=== PATIENT | female | born 1995 | race Caucasian/White ===

== ENCOUNTER 2024-07-23 19:59 | Emergency (ER) | payer OTHER, SELFPAY ==
--- NOTE | ~2024-07-23 | CT_ITS ---
CLINICAL HISTORY: RLQ pain tender CT abdomen and pelvis with contrast Comparison: None available Findings: No consolidation imaged lung bases. Mild right-sided hydroureteronephrosis with 5 mm stone in the right ureterovesicular junction. Left-sided contrast could obscure small stone. No left-sided hydronephrosis. Liver, spleen, and adrenal glands are unremarkable. Pancreas unremarkable accounting for mild artifacts. Gallbladder are unremarkable for CT. Nonenlarged lymphadenopathy. No small bowel obstruction. Moderate to severe stool burden present, including in the imaged cecum. The appendix is within normal limits (imaged 429 of series 4). The uterus is anteverted with fluid in the endometrium. No adnexal soft tissue mass by CT. No acute osseous abnormality. IMPRESSION: Mild right-sided hydroureteronephrosis with 5 mm stone in the right ureterovesicular junction. This document has been electronically signed by: Ryan Lopes MD on 07/23/2024 22:17:12
[2024-07-23 20:12] VITALS: BP 123/82; PULSE 82; TEMP 36.5; O2SAT 100
[2024-07-23 20:13] VITALS: BP 122/68; PULSE 72; O2SAT 100
[2024-07-23 20:18] VITALS: BP 123/82; PULSE 82; RESP 20; TEMP 36.5; O2SAT 100; BMI 37.7
[2024-07-23 20:37] LABS: MANUAL DIFF FLAG NO
[2024-07-23 20:38] LABS: Basophils Absolute Auto 0.1 X10*3/uL (0.0-0.2); Basophils Percent Auto 0.5 % (0-2); Eosinophils Absolute Auto 0.4 X10*3/uL (0.0-0.4); Eosinophils Percent Auto 2.4 % (0-4); Hematocrit 35.2 % (37.0-47.0); Imm Gran Abs Auto 0.06 X10*3/uL (0.00-0.03); Imm Gran Pct Auto 0.4 % (0.0-0.4); Lymphocytes Absolute Auto 2.4 X10*3/uL (1.2-4.9); Lymphocytes Percent Auto 14.8 % (20-40); Mean Corpuscular HGB Conc 34.1 g/dl (31.0-35.0); Mean Corpuscular Hemoglobin 29.2 pg (27.0-33.0); Mean Corpuscular Volume 85.6 fL (80.0-98.0); Mean Platelet Volume 9.9 fL (9.4-12.3); Monocytes Absolute Auto 0.7 X10*3/uL (0.1-1.2); Monocytes Percent Auto 4.5 % (2-11); Neutrophils Absolute Auto 12.3 x10*3/uL (2.0-8.3); Neutrophils Percent Auto 77.4 % (45-73); Platelet Count 303 X10*3/uL (160-400); Red Blood Count 4.11 X10*6/uL (4.20-5.50); Red Cell Distribution Width 12.6 % (11.0-16.0); White Blood Count 15.9 X10*3/uL (4.8-10.8)
[2024-07-23 20:40] LABS: Appearance Urine Cloudy; Color Urine Yellow; Glucose Urine UA Negative (Negative); Leukocyte Esterase Urine Moderate (2+) (Negative); Nitrite Urine Negative (Negative); PH 5.5 (5.0-9.0); Specific Gravity - Urine >= 1.030 (1.005-1.025); UMIC TRIGGER UACC YES; Urine Blood Large (3+) (Negative); Urine Ketones 40 mg/dL (Negative); Urine Protein 30 (1+) mg/dL (Neg-Trace)
[2024-07-23 20:44] LABS: UPreg QC Valid YES; Urine Pregnancy NEGATIVE (NEGATIVE)
--- NOTE | 2024-07-23 20:47 | ED.ABDPAIN ---
HPI - Abdominal Pain General Chief Complaint: Abdominal Pain Stated Complaint: R FLANK PAIN [id number] PER EMS Time Seen by Provider: 07/23/24 20:31 History of Present Illness ED Provider: Jhon Enriquez MD HPI narrative: 29-year-old female no surgical history she is an asthmatic only she reports a fluctuating pain over the past 2-3 weeks will see in the right flank but also in the lower abdomen radiating around the right lower quadrant and suprapubic region. No dysuria, pyuria, urinary frequency. She denies fevers today she began with nausea vomited 3 times nonbloody nonbilious. No surgical history no no vaginal bleeding. HCG negative Related Data Previous Rx's ?Medication ?Instructions ?Recorded ondansetron 4 mg disintegrating 4 mg PO Q8H 3 days #9 tabs 07/23/24 tablet sulfamethoxazole 400 1 tab PO BID 10 days #20 tabs 07/23/24 mg-trimethoprim 80 mg tablet (Bactrim) tamsulosin 0.4 mg capsule (Flomax) 0.4 mg PO DAILY #3 caps 07/23/24 Allergies Allergy/AdvReac Type Severity Reaction Status Date / Time No Known Allergies Allergy Verified 07/23/24 20:24 [facility] Social History Social History Unable to assess alcohol history related to: Unknown Physical Exam ED Vital Signs: Vital Signs - 24 hr 07/23/24 20:12 07/23/24 20:18 07/23/24 22:13 Temperature 97.7 F 97.7 F 97.4 F Pulse Rate 82 82 85 Respiratory Rate 20 24 H Blood Pressure 123/82 123/82 120/75 Pulse Oximetry 100 100 96 Oxygen Delivery Method Room Air Room Air Room Air 07/23/24 23:54 Temperature 97.4 F Pulse Rate 85 Respiratory Rate 24 H Blood Pressure 120/75 Pulse Oximetry 96 Oxygen Delivery Method Room Air BMI result Body Mass Index 37.7 Const Other: EXAM: Gen: Alert, awake, well appearing, well hydrated. Head: Atraumatic Eyes: Anicteric, Normal conjunctiva. ENT: Moist mucosa, no pallor. ? Neck: Supple. Respiratory: Breathing comfortably, No distress.Clear to auscultation bilaterally, symmetric chest expansion, No wheeze, rales, ronchi. Cardiovascular: Regular rate and rhythm. No murmurs or rub. Well perfused periphery, warm extremities. No edema. ? Abdominal: Soft, no objective distension. No palpable masses or obvious organomegaly. Mild tenderness in the right lower quadrant and suprapubic region. Soft otherwise., no guarding, no rebound tenderness or other peritoneal findings. : Mild right CVA tenderness no bruising Neuro: Alert. Gross movement of all extremities intact. ? Vital signs: See flowsheet Medical Decision Making Medical Decision Making MDM Narrative: 29-year-old female with right flank and lower abdominal pain. She reports negative ultrasound at [facility] 2-3 weeks ago. She has got a white count of 15.9 but no fever she has been nauseous. Could be adnexal pathology such as ovarian cyst, rupture, she is not so unlikely to be ectopic. Certainly could be torsion but seems less likely given the presentation. Appendicitis is possible, musculoskeletal pain, constipation, enteritis, colitis, diverticulitis plan for CT, nausea and pain control Lab Data 07/23/24 20:32 07/23/24 20:32 Labs: Lab Results 07/23/24 Range/Units 20:32 WBC 15.9 H (4.8-10.8) X10*3/uL RBC 4.11 L (4.20-5.50) X10*6/uL Hgb 12.0 (12.0-16.0) g/dl Hct 35.2 L (37.0-47.0) % MCV 85.6 (80.0-98.0) fL MCH 29.2 (27.0-33.0) pg MCHC 34.1 (31.0-35.0) g/dl RDW 12.6 (11.0-16.0) % Plt Count 303 (160-400) X10*3/uL MPV 9.9 (9.4-12.3) fL Immature Gran % (Auto) 0.4 (0.0-0.4) % Neut % (Auto) 77.4 H (45-73) % Lymph % (Auto) 14.8 L (20-40) % [place] % (Auto) 4.5 (2-11) % Eos % (Auto) 2.4 (0-4) % Baso % (Auto) 0.5 (0-2) % Lymph # (Auto) 2.4 (1.2-4.9) X10*3/uL [place] # (Auto) 0.7 (0.1-1.2) X10*3/uL Eos # (Auto) 0.4 (0.0-0.4) X10*3/uL Baso # (Auto) 0.1 (0.0-0.2) X10*3/uL Abs Immat Gran (auto) 0.06 H (0.00-0.03) X10*3/uL Absolute Neuts (auto) 12.3 H (2.0-8.3) x10*3/uL Absolute Nucleated RBC 0.000 (0.0-0.012) X10*3/uL Nucleated RBC % (auto) 0.0 (0.0-0.2) /100WBC Sodium 139 (135-145) mmol/L Potassium 3.9 (3.3-5.1) mmol/L Chloride 103 (96-108) mmol/L Carbon Dioxide 24 (22-29) mmol/L Anion Gap 16 (12-20) BUN 10 (9-16) mg/dL Creatinine 0.94 (0.5-1.4) mg/dL Estim Creat Clear Calc 92.0 Estimated GFR > 60 Random Glucose 109 (60-115) mg/dL Calcium 10.0 (8.4-10.2) mg/dL Total Bilirubin 0.4 (0.0-1.0) mg/dL AST 23 (5-31) U/L ALT 21 (0-31) U/L Alkaline Phosphatase 67 (39-117) U/L Total Protein 7.8 (6.5-8.0) g/dL Albumin 4.4 (3.5-5.0) g/dL Urine Color Yellow Urine Appearance Cloudy Urine pH 5.5 (5.0-9.0) Ur Specific [place] >= 1.030 H (1.005-1.025) Urine Protein 30 (1+) H (Neg-Trace) mg/dL Urine Glucose (UA) Negative (Negative) mg/dL Urine Ketones 40 (Negative) mg/dL Urine Blood Large (3+) H (Negative) Urine Nitrite Negative (Negative) Ur Leukocyte Esterase Moderate (2+) H (Negative) Urine RBC >20 H (0-2) /HPF Urine WBC >50 H (0-5) /HPF Ur Squamous Epith Cells 11-20 (0-2) /HPF Calcium Oxalate Crystal Present Urine Bacteria 4+ (None Seen) Hyaline Casts 3-5 (0-2) /LPF Urine Test NEGATIVE (NEGATIVE) Medications Administered Discontinued Medications Generic Name Dose Route Start Last Admin Trade Name Marilou PRN Reason Stop Dose Admin Sodium Chloride 1,000 mls @ 999 mls/hr 07/23/24 22:01 07/23/24 23:24 Ns IVCONT 07/23/24 23:01 Infused .Q1H1M ONE Infusion Sodium Chloride 1,000 mls @ 999 mls/hr 07/23/24 22:15 07/23/24 23:24 Ns IV 07/23/24 23:15 Infused .Q1H1M TARAS Infusion Iohexol 85 ml 07/23/24 21:12 07/23/24 21:12 Iohexol 350 Mg/Ml 100 Ml Infus..Btl IV 07/23/24 21:13 85 ml ONCE ONE Administration Ketorolac Tromethamine 15 mg 07/23/24 20:46 07/23/24 20:59 Ketorolac Tromethamine 15 Mg/Ml Vial IVPUSH 07/23/24 20:47 15 mg ONCE ONE Administration Ondansetron HCl 4 mg 07/23/24 20:46 07/23/24 20:59 Ondansetron Hcl 4 Mg/2 Ml Vial IVPUSH 07/23/24 20:47 4 mg ONCE ONE Administration Discharge Plan Discharge Clinical Impression: Calculus, ureteral, UTI (urinary tract infection) Patient Disposition: Home, Self-Care Instructions: Urinary Tract Infection in Women (ED), Ureteral Stones (ED) Additional Instructions: DISCHARGE DIAGNOSES: Urinary tract infection in the setting of a small stone likely to pass on its own HISTORY OF PRESENTATION: ?Flank pain EMERGENCY DEPARTMENT COURSE,TESTS, TREATMENTS: While in the ED today you had a CT scan showing a small stone trapped at the entrance to the bladder from the ureter. He also had signs of urinary tract infection however he have no fever. Given that you were clinically stable we discussed your case with our urologist who recommended aggressive intravenous fluid while you were here starting antibiotics and sending you home with strict return precautions to come back to the emergency department if you worsened DISCHARGE MEDICATIONS: ?Bactrim antibiotic for 10 days FOLLOW-UP: ?Call your primary or general physician soon as possible to discuss your symptoms, your ED visit and to discuss follow up plans Call Urology to follow up and your primary doctor 1st thing Friday morning INSTRUCTIONS ?& RETURN PRECAUTIONS: If any symptoms change first call your primary physician, if it is after-hours your primary doctors office should have a provider vocational training instructor you can speak with. If the symptoms are severe or very concerning to you then call 911 or return to the ED. Return back for high fevers severe abdominal or flank pain or vomiting that will not stop or inability to take your antibiotics Jhon Enriquez MD Emergency Physician [facility] Prescriptions: New sulfamethoxazole-trimethoprim [Bactrim] 400-80 mg tablet 1 tab PO BID 10 Days Qty: 20 0RF ondansetron 4 mg tablet,disintegrating 4 mg PO Q8H 3 Days Qty: 9 0RF tamsulosin [Flomax] 0.4 mg capsule 0.4 mg PO DAILY Qty: 3 0RF Interventions: ED Discharge Assessment Last Done: 07/23/24 23:54 Discharge Date/Time: 07/23/24 23:55 Print Language: Macanese
[2024-07-23 20:59] LABS: Alanine Aminotransferase 21 U/L (0-31); Albumin Level 4.4 g/dL (3.5-5.0); Alkaline Phosphatase 67 U/L (39-117); Anion Gap 16 (12-20); Aspartate Amino Transferase 23 U/L (5-31); Bilirubin Total 0.4 mg/dL (0.0-1.0); Blood Urea Nitrogen 10 mg/dL (9-16); Carbon Dioxide 24 mmol/L (22-29); Chloride 103 mmol/L (96-108); Estimated Glomerular Filt Rate > 60; Glucose Random 109 mg/dL (60-115); Potassium 3.9 mmol/L (3.3-5.1); Sodium 139 mmol/L (135-145); Total Protein 7.8 g/dL (6.5-8.0)
[2024-07-23] MEDS: ondansetron HCL 4 MG/2 ML VIAL IVPUSH (20:59)
[2024-07-23] MEDS: Ketorolac Tromethamine 15 MG/ML VIAL IVPUSH (20:59)
[2024-07-23 21:02] LABS: Bacteria Urine 4+ (None Seen); Calcium Oxalate Crystals Urine Present; RBC Urine >20 /HPF (0-2); UACC Culture Trigger YES; WBC Urine >50 /HPF (0-5)
[2024-07-23] MEDS: iohexoL 350 MG/ML 100 ML INFUS..BTL 85 ML IV (21:12)
[2024-07-23] MEDS: 0.9 % Sodium Chloride 1,000 ML 999 ML IVCONT (22:04)
[2024-07-23 22:13] VITALS: BP 120/75; PULSE 85; RESP 24; TEMP 36.3; O2SAT 96
[2024-07-23] MEDS: 0.9 % Sodium Chloride 1,000 ML 999 ML IV (22:17)
[2024-07-23 23:54] VITALS: BP 120/75; PULSE 85; RESP 24; TEMP 36.3; O2SAT 96
== END 2024-07-23 23:55 | disposition home or self-care (01) ==
PROVIDERS: Emergency Provider Emergency Medicine
DX: N20.1 Calculus of ureter (principal); N39.0 Urinary tract infection, site not specified; R10.2 Pelvic and perineal pain; R10.31 Right lower quadrant pain; R11.0 Nausea
CPT/HCPCS: 36415; 74177; 80053; 81001; 81025; 85025; 87086; 96361; 96374; 96375; 99284; 99285; J1885; J2405; Q9967

== ENCOUNTER → 2024-07-23 20:46 | Outpatient (BNV) | payer OTHER, SELFPAY | PROVIDERS: Emergency Provider Emergency Medicine; Visit Provider Radiology Neuroradiology | DX: N20.1 Calculus of ureter (principal) | CPT/HCPCS: 74177 ==